=== PATIENT | female | born 1985 | race Two or more races ===

== ENCOUNTER 2020-07-29 10:46 | Outpatient (CLI) | payer OTHER | END 2020-07-29 12:13 | disposition home or self-care (01) | LOC: RX STUDY 10:46 | PROVIDERS: ATTEND Obstetrics & Gynecology | DX: N88.8 Other specified noninflammatory disorders of cervix uteri (principal) ==

== ENCOUNTER 2021-05-04 07:44 | Inpatient (IN) | payer OTHER ==
[~2021-05-04] VITALS: Ht 160 cm; Wt 77.1 kg
[2021-05-04] MEDS ORDERED: PRENATAL TABLE1 EAC3 PO (09:49)
[2021-05-06] MEDS ORDERED: DOCUSATE SODIU100 MG PO (11:20)
[2021-05-06] MEDS ORDERED: IBUPROFEN400 MG PO (11:20)
[2021-05-06] MEDS ORDERED: PREPLUS CA-FE1 EACH PO (11:20)
== END 2021-05-06 15:05 | disposition home or self-care (01) | DRG 807 ==
LOC: NST 07:44 → OB/GYN 08:36 → LDR 08:36 → OB/GYN 16:22
PROVIDERS: ADMIT Obstetrics & Gynecology; ATTEND Obstetrics & Gynecology
PROC: 10E0XZZ Delivery of Products of Conception, External Approach (ICD-10-PCS; principal; 2021-05-04)
PROC: 0W8NXZZ Division of Female Perineum, External Approach (ICD-10-PCS; 2021-05-04)
PROC: 10907ZC Drainage of Amniotic Fluid, Therapeutic from Products of Conception, Via Natural or Artificial Opening (ICD-10-PCS; 2021-05-04)
PROC: 4A1HXFZ Monitoring of Products of Conception, Cardiac Rhythm, External Approach (ICD-10-PCS; 2021-05-04)
DX: O80 Encounter for full-term uncomplicated delivery (principal); Z37.0 Single live birth; Z3A.37 37 weeks gestation of pregnancy; Z20.822 Contact with and (suspected) exposure to COVID-19